=== PATIENT | female | born 1940 | race Caucasian/White ===

== ENCOUNTER 2022-02-23 15:21 | Emergency (ER) | payer MEDICARE, OTHER, SELFPAY ==
[2022-02-23] MEDS: EPINEPHrine 0.1 mg/mL SYR 10 mL 1 MG IVP ×2 (15:23→15:26)
[2022-02-23] MEDS: sodium bicarbonate 8.4% 1 mEq/mL 50mL Syr 50 MEQ IVP (15:27)
[2022-02-23] MEDS: calcium chloride 10% Syr 10 mL 1 GM IVP (15:28)
--- NOTE | 2022-02-23 15:39 | W.ED.CPR ---
HPI - CPR General: Stated Complaint: CARDIAC ARREST Time Seen by Provider: 02/23/22 15:21 Source: EMS Mode of arrival: EMS History of Present Illness: 81-year-old female arrives via EMS with CPR in progress ET tube in place. Patient been down for approximately 25 to 30 minutes prior to arrival. had been with her gone to the bathroom she became poorly responsive he tried to get some help was able to get help she became less less responsive became flaccid and he called 911. On arrival there they found her unresponsive pulseless and apneic ACLS protocols were initiated. She had been given several rounds of epinephrine and 1 defibrillation in route. After the defibrillation she went into PEA/asystole and remained there throughout the rest of the resuscitative efforts. MD complaint: found unresponsive Onset (ago): minute(s) (25-30) Timing confirmed by: spouse Initial findings in the field: unresponsive, no respirations and no pulse ROSC in the field: No Associated injuries: No Treatments prior to arrival: intubation, chest compressions and defibrillated shocks # (1) Review of Systems General: Reports: ROS unobtainable due to medical condition PFSH ED Supplemental [facility] Information: due to endotracheal tube Physical Exam Resp: EFFORT & INSPECTION: Yes other (No spontaneous respiratory effort) AUSCULTATION: breath sounds absent Cardio: OTHER: Patient in PEA on arrival occasionally have had runs of asystole there is no ROSC. No auscultated by heart sounds or palpable pulses at any point other than with CPR MDM - Cardiac Arrest/CPR Medical Decision Making On arrival patient in PEA/asystole. She was given several more rounds of epinephrine also given calcium carb chloride and sodium bicarb. Effective CPR verified by palpable femoral pulses during compressions no palpable pulses at pulse checks. Family arrived and requested cessation of resuscitative efforts. At that point patient been down approximately 35 minutes and further resuscitative efforts were likely to be futile. Code stopped to code flowsheet. Critical Care Time Critical Care Time: Critical Care Time: Yes Total Critical Care Time: 35 Attestation: The high probability of a clinically significant, sudden or life threatening deterioration of the patient's cardiovascular/respiratory system(s) required my full and direct attention, intervention and personal management. The critical care time is as shown. This time is in addition to time spent performing any reported procedures but includes the following: [x] Data and vital sign review and interpretation [x] Patient assessment, examination and intervention [x] Documentation [x] Medication orders and management Discharge Plan Discharge Patient Disposition: Clinical Impression: Cardiorespiratory arrest Condition: Coding Level of Care Code ED Alum Operator for Nilda Yoo
[2022-02-23 15:40] VITALS: PULSE 0; RESP 0; O2SAT 0; BMI 25.0
--- NOTE | 2022-02-23 16:04 | PC.NURSE ---
PATIENT PRESENTS TO THE ED VIA EMS IN CARDIAC ARREST. CPR AND ACLS IN PROGRESS. PATIENT WAS FOUND BY AND CPR WAS INITIATED IN THE FIELD BY [facility] AT APPROXIMATELY 1450. EMS REPORTS THAT PATIENT HAD ACTIVE CPR IN PROGRESS FOR APPROXIMATELY 30 MINUTES BEFORE ARRIVING. PULSE CHECK UPON ARRIVAL AT 1520. COMPRESSIONS CONTINUED AT 1521. EPI GIVEN 1523. PULSE CHECK AT 1525. SODIUM BICARB GIVEN AT 1526. 2ND EPI GIVEN AT 1526. PULSE CHECK AT 1527. ARRIVED AT 1529 AND STATED THAT HE WOULD LIKE TO DISCONTINUE RESUSCITATION. PATIENT 1529. POST MORTEM CARE PROVIDED.
[2022-02-23 16:15] VITALS: PULSE 0; RESP 0; O2SAT 0
--- NOTE | 2022-02-23 16:33 | PC.CHAP ---
Pastoral Care Encounter/Spiritual Assessment Type of Contact [] Declined courier delivery driver visit [] Patient/Family/Request visit [] Outpatient visit [] Follow-up visit [] Physician referral [] Code/Alert [] Routine visit [] Staff referral [] Actively dying [] Patient sleeping [x] Family support [x] [] Out of room [] Palliative care [] [] Receiving care in room [] Pre-surgical visit [] Trauma [] Long length of stay [] ICU visit [] Other: Relational/Emotional Strength [] Patient feels connected with others/family/visitors/staff [] Distress [] Loneliness/isolation [] Abandonment Spirituality of Patient [x] Person of Rayne [] Attends Buddhist of their Rayne [] Believes in Prayer [] Reads Bible or Mu-Ism materials [] There are Spiritual issues to be addressed [employer] Interventions [x] Prayer [x] Active listening [x] Non-anxious presence [x] Spiritual/emotional support [x] Crisis/trauma care [] Spiritual counseling [x] Bereavement support [] Provided bereavement packet [] Provided Bible/devotional materials [] Provided toy/stuffed animal, coloring book to patient or family member [] Provided Communion [] Anointing/[place]acine [] Salvation [] Completed spiritual assessment [] Other: Impact on Illness or Injury [] Angry [] Fearful [] Anxious [] Often cries [] Exhaustion [] Unable to work [] Unable to attend uatsdin [] Unable to walk/stand [] Unable to read [] Unable to drive [] Unable to eat/drink [] Unable to sleep [] Unable to be with family [] Patient intubated [] Other: Summary Called to ED to support family upon of loved one. by patient bedside, son coming. [employer] Furn[employer] offered deep condolences to and give listening ear. Upon arrival of son and his , courier delivery driver prayed for family and inquired of any other needs, none at this time. Time spent with patient 45 mins
== END 2022-02-23 17:41 | disposition expired ==
PROVIDERS: Emergency Provider Family Medicine
DX: I46.9 Cardiac arrest, cause unspecified (principal)
CPT/HCPCS: 99285; J0171; J3490